=== PATIENT | female | born 1980 | race Caucasian/White ===

== ENCOUNTER 2017-11-27 23:05 | Emergency (ER) | payer BC, OTHER ==
[2017-11-27] MEDS ORDERED: OCTYL 2-CYANOACRYLATE 1 EACH TP ONE (23:13)
== END 2017-11-28 00:11 | disposition home or self-care (01) ==
LOC: EDH 23:05
DX: S61.012A Laceration without foreign body of left thumb without damage to nail, initial encounter (principal); Z88.0 Allergy status to penicillin; Z88.1 Allergy status to other antibiotic agents; Z79.899 Other long term (current) drug therapy; W26.0XXA Contact with knife, initial encounter; Y93.G3 Activity, cooking and baking; Y92.098 Other place in other non-institutional residence as the place of occurrence of the external cause; Y99.8 Other external cause status
CPT/HCPCS: 12002